=== PATIENT | male | born 1970 ===

== ENCOUNTER 2020-03-02 14:32 | Emergency (ER) | payer MEDICAID ==
[~2020-03-02] VITALS: Ht 167.6 cm; Wt 66.2 kg
[2020-03-02 15:15] VITALS: BP 154/76
--- NOTE | 2020-03-02 15:15 | NUR ---
ED Nurse Note: pt ambulated into ed from home CO swollen right hand after taking cough syrup 3 weeks go. Pt stated he tested positive for covid 3 weeks ago. VSS no ss of distress noted. Awaiting ERMD at bedside
--- NOTE | 2020-03-02 15:35 | NUR ---
ED Nurse Note: xray at bedside
--- NOTE | 2020-03-02 15:55 | NUR ---
ED Nurse Note: ERMD at bedside
--- NOTE | 2020-03-02 16:20 | NUR ---
ED Nurse Note: Pt resting comfortably. No ss of distress noted.
--- NOTE | 2020-03-02 16:28 | Emergency Room Report ---
History of Present Illness General Chief Complaint: Upper Extremity Injury Source: Patient Present Illness HPI 50-year-old male with confirmed status of Covid 19, that was tested positive for 3 weeks ago here complaining of right hand swelling x3 weeks. Reports that started after he took a cough syrup which he believes was Phenergan. Reports the swelling has been going on after taking Benadryl. Has full range of motion. Denies any fall or trauma. Denies any chest pain shortness of breath at this time. Appears to be stable with stable vital signs. Denies fever and chills. Temperature and oxygenation are within normal limits. Minimal swelling noted in the right hand. No bony tenderness noted. Denies abdominal pain, nausea vomiting diarrhea. Allergies: Coded Allergies: No Known Allergies (Unverified , 03/02/20) COVID-19 Screening Contact w/high risk pt: No Recent Travel to affected area: No Experienced COVID-19 symptoms?: No Patient History Past Medical History: see triage record Past Surgical History: none Pertinent Family History: none Immunizations: UTD Reviewed Nursing Documentation: PMH: Agreed; PSxH: Agreed Nursing Documentation-PMH Past Medical History: No Stated History Review of Systems All Other Systems: negative except mentioned in HPI Physical Exam Vital Signs Date Time Temp Pulse Resp B/P (MAP) Pulse Ox O2 Delivery O2 Flow Rate FiO2 03/02/20 15:07 98.4 87 20 154/76 (102) 98 Room Air Sp02 EP Interpretation: reviewed, normal General Appearance: no apparent distress, alert, GCS 15, non-toxic Head: normocephalic, atraumatic Eyes: bilateral eye normal inspection, bilateral eye PERRL ENT: hearing grossly normal, normal pharynx, no angioedema, normal voice Neck: full range of motion, supple, supple/symm/no masses Respiratory: chest non-tender, lungs clear, normal breath sounds, no rhonchi, no respiratory distress, no retraction, no wheezing, speaking full sentences Cardiovascular #1: regular rate, rhythm, no edema, no murmur Cardiovascular #2: 2+ radial (R), 2+ radial (L) Gastrointestinal: normal bowel sounds, non tender, soft, non-distended, no guarding, no rebound Genitourinary: no CVA tenderness Musculoskeletal: back normal, swelling - Minimal swelling noted right dorsum of hand Neurologic: alert, oriented Psychiatric: judgement/insight normal, memory normal, mood/affect normal, no suicidal/homicidal ideation Skin: no rash Lymphatic: no adenopathy Medical Decision Making PA Attestation All diagnoses and treatment plans were reviewed and discussed with my supervising physician Dr. Colmenares Diagnostic Impression: Primary Impression: Hand swelling ER Course 50-year-old male with confirmed status of Covid 19, that was tested positive for 3 weeks ago here complaining of right hand swelling x3 weeks. Reports that started after he took a cough syrup which he believes was Phenergan. Reports the swelling has been going on after taking Benadryl. Has full range of motion. Denies any fall or trauma. Denies any chest pain shortness of breath at this time. Appears to be stable with stable vital signs. Denies fever and chills. Temperature and oxygenation are within normal limits. Minimal swelling noted in the right hand. No bony tenderness noted. Denies abdominal pain, nausea vomiting diarrhea. Ddx considered but are not limited to : Cellulitis, allergic reaction, hand swelling, Vital signs: are WNL, pt. is afebrile H&PE are most consistent with: Pain swelling most likely secondary to allergic reaction ORDERS: Benadryl, Tylenol, hand x-ray ED INTERVENTIONS: None required at this time. DISCHARGE: At this time pt. is stable for d/c to home. Will provide printed patient care instructions, and any necessary prescriptions. Care plan and follow up instructions have been discussed with the patient prior to discharge. Patient to follow primary doctor, take medication as directed, if worsening symptoms return to the emergency room. Other X-Ray Diagnostic Results Other X-Ray Diagnostic Results : X-Ray ordered: hand # of Views/Limited Vs Complete: 3 View Indication: Pain EP Interpretation: Yes PA Xray: Interpretation reviewed, by supervising MD, and agrees with findings. Interpretation: no dislocation, no soft tissue swelling, no fractures Impression: No acute disease Electronically Signed by: Megan Jain PA-C Last Vital Signs Date Time Temp Pulse Resp B/P (MAP) Pulse Ox O2 Delivery O2 Flow Rate FiO2 03/02/20 15:15 98.4 79 20 154/76 98 Room Air Disposition: HOME, SELF-CARE Condition: Stable Scripts Diphenhydramine HCl (Benadryl) 25 Mg Capsule 25 MG PO TID, #30 CAP Prov: Megan Patel 03/02/20 Acetaminophen* (TYLENOL EXTRA STRENGTH*) 500 Mg Tablet 2 TAB ORAL Q8H PRN for Prn Headache/Temp > 101, #30 TAB 0 Refills Prov: Megan Patel 03/02/20 Referrals: NON PHYSICIAN (PCP) Patient Instructions: Edema, [id number] Additional Instructions: Take medication as directed, follow-up with your primary care provider, if worsening symptoms return to the emergency room Megan Patel Mar 02, 2020 16:28
[2020-03-02] MEDS ORDERED: TYLENOL EXTRA500 MG ORAL (16:29)
[2020-03-02] MEDS ORDERED: BENADRYL25 M3 PO (16:29)
--- NOTE | 2020-03-02 16:56 | Diagnostic Imaging Report ---
Indication: Right hand pain Technique: 3 views right hand Comparison: none Findings: There is irregularity of the terminal tuft of the second digit. This appears well marginated and likely chronic. No acute fractures. No dislocations. The joint spaces are preserved. There is dorsal soft tissue swelling Impression: No definite acute bony trauma Irregularity of the second digit terminal tuft, suspect chronic. Correlate with clinical findings
[2020-03-02 17:00] VITALS: BP 145/82
--- NOTE | 2020-03-02 17:00 | NUR ---
ER DISCHARGE NOTE: Patient is cleared to be discharged home per ERMD, pt is aox4, on room air, with stable vital signs. pt was given dc and prescription instructions, pt was able to verbalize understanding, pt id band removed. pt is able to ambulate with steady gait. pt took all belongings.
== END 2020-03-02 17:00 | disposition home or self-care (01) ==
LOC: EMR 15:00
DX: R22.31 Localized swelling, mass and lump, right upper limb (principal)
CPT/HCPCS: 73130; Z7502; 99283